=== PATIENT | female | born 1945 | race Two or more races ===

== ENCOUNTER 2017-08-25 14:33 | Emergency (ER) | payer MEDICARE, MEDICAID ==
[~2017-08-25] VITALS: Ht 154.9 cm; Wt 51.7 kg
[~2017-08-25 14:33] MED LIST: CLINDAMYCIN HC150 MG ORAL; IBUPROFEN600 MG PO; NORVASC5 MG ORAL; SIMVASTATIN20 MG ORAL
[2017-08-25 14:49] VITALS: BP 131/74
--- NOTE | 2017-08-25 15:48 | Emergency Room Report ---
History of Present Illness General Chief Complaint: Eye Problems Source: Patient, Medical Record Present Illness HPI 72-year-old female presents to the emergency department complaining of erythema , discharge, increased lacrimation and itching to the bilateral eyes since yesterday. Patient denies pain she denies visual changes other than intermittently blurry due to discharge. She denies ill contacts or recent travel. Denies: Painful eye movements, photophobia, Loss of vision, Floaters, Flashing lights, consistent Diplopia/blurry vision, or scratching sensation. Reports dry nonproductive cough denies fevers or chills. Denies headache, neck pain, or neck stiffness. Denies CP, Palpitations, LOC, AMS, dizziness, Changes in Sensation, paresthesias, or a sudden severe headache. Allergies: Coded Allergies: No Known Allergies (Unverified , 03/06/13) Patient History Past Medical History: see triage record Past Surgical History: none Pertinent Family History: none Now: No Immunizations: UTD Reviewed Nursing Documentation: PMH: Agreed, PSxH: Agreed Nursing Documentation-PMH Past Medical History: No History, Except For Hx Cardiac Problems: No Hx Hypertension: Yes Hx Pacemaker: No Hx Asthma: No Hx COPD: No Hx Diabetes: No Hx Cancer: No Hx Gastrointestinal Problems: No Hx Dialysis: No Hx Neurological Problems: No Hx Cerebrovascular Accident: No Hx Seizures: No Review of Systems All Other Systems: negative except mentioned in HPI Physical Exam Vital Signs Date Time Temp Pulse Resp B/P (MAP) Pulse Ox O2 Delivery O2 Flow Rate FiO2 08/25/17 14:42 98.4 80 18 131/74 96 Room Air Sp02 EP Interpretation: reviewed, normal General Appearance: no apparent distress, alert, GCS 15, non-toxic Head: normocephalic, atraumatic Eyes: bilateral eye normal inspection, bilateral eye PERRL, bilateral eye EOMI , bilateral eye Scleral Injection, bilateral eye other - yellow thick d/c bilateral eyes. ENT: hearing grossly normal, normal voice Neck: full range of motion Respiratory: lungs clear, normal breath sounds, no wheezing, speaking full sentences Cardiovascular #1: regular rate, rhythm Rectal: deferred Genitourinary: normal inspection Musculoskeletal: back normal, gait/station normal, normal range of motion, non- tender Neurologic: alert, oriented x3, responsive, motor strength/tone normal, sensory intact, speech normal, grossly normal Psychiatric: judgement/insight normal Skin: normal color, no rash, warm/dry, well hydrated Lymphatic: no adenopathy Medical Decision Making PA Attestation Dr. Tripp is my supervising Physician whom patient management has been discussed with. Diagnostic Impression: Primary Impression: Bacterial conjunctivitis of both eyes Additional Impression: Cough in adult ER Course 72-year-old female presents to the emergency department complaining of erythema , discharge, increased lacrimation and itching to the bilateral eyes since yesterday. Patient denies pain she denies visual changes other than intermittently blurry due to discharge. She denies ill contacts or recent travel. Denies: Painful eye movements, photophobia, Loss of vision, Floaters, Flashing lights, consistent Diplopia/blurry vision, or scratching sensation. Reports dry nonproductive cough denies fevers or chills. Denies headache, neck pain, or neck stiffness. denies contact lens use. Denies CP, Palpitations, LOC , AMS, dizziness, Changes in Sensation, paresthesias, or a sudden severe headache. Ddx considered but are not limited to: corneal abrasion, acute glaucoma, globe rupture, FB, Corneal Ulcer, conjunctivitis. Iridis, orbital cellulitis,keratitis , sinusitis, URI Vital signs: are WNL, pt. is afebrile H&PE are most consistent with: bilateral conjunctivitis, and cough due to visible dc will treat as bacterial although viral etiology of conjunctivitis is suspicious. VA: 20/20 with glasses. ORDERS: none at this time. ED INTERVENTIONS: none at this time. DISCHARGE: At this time pt. is stable for d/c to home. Will provide printed patient care instructions, and any necessary prescriptions. Care plan and follow up instructions have been discussed with the patient prior to discharge. Last Vital Signs Date Time Temp Pulse Resp B/P (MAP) Pulse Ox O2 Delivery O2 Flow Rate FiO2 08/25/17 14:49 98.4 80 18 131/74 96 Room Air Disposition: HOME, SELF-CARE Condition: Stable Scripts Guaifenesin/Dextromethorphan (ROBITUSSIN COUGH-CHEST DM LIQ) 237 Ml Liquid 10 ML PO Q6HR, #237 ML Prov: Janneth Alves P.A. 08/25/17 Ofloxacin (OCUFLOX) 5 Ml Drops 2 ML OP TID, #5 ML Prov: Janneth Alves 08/25/17 Patient Instructions: Bacterial Conjunctivitis, [id number] Additional Instructions: Take medications as directed. Follow up with a Primary Care Provider in 3-5 days, even if your symptoms have resolved. --Please review list of primary care clinics, if you do not already have a primary care provider Return sooner to ED if new symptoms occur, or current symptoms become worse. - Please note that this Emergency Department Report was dictated using [email or web address] support engineer technology software, occasionally this can lead to erroneous entry secondary to interpretation by the dictation equipment. Janneth Alves Aug 25, 2017 15:48
[2017-08-25] MEDS ORDERED: OCUFLOX5 ML OP (15:49)
[2017-08-25] MEDS ORDERED: ROBITUSSIN COU237 M1 PO (15:49)
[2017-08-25 16:10] VITALS: BP 131/74
== END 2017-08-25 16:20 | disposition home or self-care (01) ==
LOC: EMR 15:10
DX: H10.9 Unspecified conjunctivitis (principal); B96.89 Other specified bacterial agents as the cause of diseases classified elsewhere; R05 Cough; I10 Essential (primary) hypertension
CPT/HCPCS: 99284

== ENCOUNTER 2017-09-13 10:26 | Emergency (ER) | payer MEDICAID, MEDICARE, OTHER ==
[~2017-09-13] VITALS: Ht 152.4 cm; Wt 49.9 kg
[~2017-09-13 10:26] MED LIST changes: +OCUFLOX5 ML OP; +ROBITUSSIN COU237 M1 PO
[2017-09-13 13:22] VITALS: BP 128/87
--- NOTE | 2017-09-15 14:11 | Emergency Room Report ---
History of Present Illness General Chief Complaint: Skin Rash/Abscess Source: Patient Present Illness HPI 72-year-old female with rash to face for 2 weeks denies rash area has spread Sometimes associated with itch and white plaque like area Denies any new medications started, just uses daily face cream and sunscreen No fever chills, vesicles No history of rash to other parts of body Allergies: Coded Allergies: AMLODIPINE (Verified Allergy, Unknown, 09/13/17) DICLOFENAC (Verified Allergy, Unknown, 09/13/17) DIPHENHYDRAMINE (Verified Allergy, Unknown, Tongue swelling, 09/13/17) MELOXICAM (Verified Allergy, Unknown, 09/13/17) SIMVASTATIN (Verified Allergy, Unknown, 09/13/17) SULINDAC (Verified Allergy, Unknown, 09/13/17) Patient History Past Medical History: old chart reviewed Past Surgical History: none Pertinent Family History: none Social History: Denies: smoking, alcohol use, drug use Now: No Immunizations: UTD Reviewed Nursing Documentation: PMH: Agreed, PSxH: Agreed Nursing Documentation-PMH Past Medical History: No History, Except For Hx Hypertension: Yes Hx Pacemaker: No Hx Asthma: No Hx COPD: No Hx Diabetes: No Hx Cancer: No Hx Gastrointestinal Problems: No Hx Dialysis: No History Of Psychiatric Problem: No Hx Neurological Problems: No Hx Cerebrovascular Accident: No Hx Seizures: No Review of Systems All Other Systems: negative except mentioned in HPI Physical Exam Vital Signs Date Time Temp Pulse Resp B/P (MAP) Pulse Ox O2 Delivery O2 Flow Rate FiO2 09/13/17 10:31 97.9 73 16 128/87 95 09/13/17 13:22 Room Air Sp02 EP Interpretation: reviewed, normal General Appearance: normal inspection, well appearing, no apparent distress, alert, GCS 15, non-toxic Head: normocephalic, atraumatic Eyes: bilateral eye PERRL, bilateral eye EOMI ENT: normal ENT inspection, hearing grossly normal, normal pharynx, no angioedema, normal voice, TMs + canals normal, uvula midline, moist mucus membranes Neck: normal inspection, full range of motion, supple, thyroid normal, no meningismus, no bony tend Respiratory: normal inspection, lungs clear, normal breath sounds, no rhonchi, no respiratory distress, no retraction, no accessory muscle use, no wheezing, speaking full sentences Cardiovascular #1: regular rate, rhythm, no edema, no JVD, normal capillary refill Gastrointestinal: normal inspection, normal bowel sounds, non tender, soft, no mass, no peritonitis, non-distended, no guarding, no hernia, no pulsatile mass Genitourinary: no CVA tenderness Musculoskeletal: normal inspection, back normal, normal range of motion, no calf tenderness, pelvis stable, Lidia's Sign negative Neurologic: normal inspection, alert, oriented x3, responsive, independent marketing consultant III-XII nml as tested, motor strength/tone normal, cerebellar normal, normal gait, speech normal Psychiatric: normal inspection, judgement/insight normal, mood/affect normal, no suicidal/homicidal ideation, no delusions Skin: other - Face: multiple areas of redness to face with very scant whitish plaque, no excoriations, no vesicles. Lymphatic: normal inspection, no adenopathy Medical Decision Making Diagnostic Impression: Primary Impression: Rash ER Course [id number] with rash for 2 weeks VSS, Afebrile Very well appearing No recent Abx, meds, travel, sick contacts Unknown etiology at this time As first step advised STOPPING all facial creams and followup with PMD for Derm referral I don't think it's good idea to start patient on topical steroids for face given steroids can thin out the facial skin and might cloud dermatology assessment, potential biopsy Patient repeatedly asking for medication for itch - however states allergy to benadryl. I doubt allergy to benadryl as was given zyrtec with improvement, and no adverse effects ER course: Patient has remained stable during ED stay. Disposition: Patient is to be discharged to home. Patient is instructed to follow up with their primary care doctor within 5 days. Patient is instructed to follow up with brand manager t within 3 days. Strict return precautions discussed with patient such as fever, chills, worsening/severe pain, nausea, vomiting, which may indicate severe illness. Patient verbalizes understanding and agrees with plan. Please note that this Emergency Department Report was dictated using [employer] buttonhole machine operator technology software, occasionally this can lead to erroneous entry secondary to interpretation by the dictation equipment Last Vital Signs Date Time Temp Pulse Resp B/P (MAP) Pulse Ox O2 Delivery O2 Flow Rate FiO2 09/13/17 13:22 97.9 68 18 128/87 98 Room Air Status: improved Disposition: HOME, SELF-CARE Condition: Improved Patient Instructions: Rash Additional Instructions: - STOP All face creams and moisturizer - Ask your doctor for dermatology referral EMIR VAZQUEZ M.D. Sep 15, 2017 14:11
== END 2017-09-13 13:19 | disposition home or self-care (01) ==
LOC: EMR 10:55
DX: R21 Rash and other nonspecific skin eruption (principal); I10 Essential (primary) hypertension; Z88.8 Allergy status to other drugs, medicaments and biological substances
CPT/HCPCS: 99283